=== PATIENT | female | born 2000 | race Caucasian/White ===

== ENCOUNTER 2021-02-18 23:22 | Emergency (ER) | payer OTHER ==
[~2021-02-18] VITALS: Ht 154.9 cm; Wt 83.9 kg
[2021-02-18] MEDS ORDERED: OMEPRAZOLE20 M1 PO (23:39)
== END 2021-02-19 00:48 | disposition home or self-care (01) ==
LOC: ED 23:22
DX: R10.13 Epigastric pain (principal); K21.9 Gastro-esophageal reflux disease without esophagitis; J45.909 Unspecified asthma, uncomplicated
CPT/HCPCS: 80053; 81001; 83690; 84703; 85025; 99284

== ENCOUNTER 2023-10-02 01:44 | Emergency (ER) | payer OTHER ==
[~2023-10-02] VITALS: Ht 154.9 cm; Wt 99.0 kg
[~2023-10-02 01:44] MED LIST: OMEPRAZOLE20 M1 PO
[2023-10-02 02:13] VITALS: BP 135/73
== END 2023-10-02 02:16 | disposition home or self-care (01) ==
LOC: ED 01:44
DX: H60.91 Unspecified otitis externa, right ear (principal); J45.909 Unspecified asthma, uncomplicated
CPT/HCPCS: 99282; A9270